=== PATIENT | female | born 1955 | race African-American/Black ===

== ENCOUNTER 2023-05-10 19:05 | Emergency (ER) | payer MEDICARE, MEDICAID ==
[~2023-05-10] VITALS: Ht 167.6 cm; Wt 79.0 kg
[~2023-05-10 19:05] MED LIST: HCTZ; LIPITOR; PLAVIX
[2023-05-10 19:21] VITALS: BP 110/65; PULSE 80; RESP 16; TEMP 98.6; O2SAT 100
== END 2023-05-10 21:23 | disposition home or self-care (01) ==
LOC: ER 19:05
DX: S90.32XA Contusion of left foot, initial encounter (principal); I10 Essential (primary) hypertension; X58.XXXA Exposure to other specified factors, initial encounter; Y93.89 Activity, other specified; Y92.89 Other specified places as the place of occurrence of the external cause; Y99.8 Other external cause status
CPT/HCPCS: 73630; 99283